=== PATIENT | female | born 1985 | race American Indian/Alaskan Native ===

== ENCOUNTER 2019-12-16 20:32 | Emergency (ER) | payer OTHER, MEDICAID ==
[2019-12-16 20:42] VITALS: BP 138/92
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
== END 2019-12-16 22:34 | disposition left against medical advice (07) ==
LOC: ED 20:32
DX: M54.89 Other dorsalgia (principal); M54.2 Cervicalgia; R07.89 Other chest pain; Z00.00 Encounter for general adult medical examination without abnormal findings
CPT/HCPCS: 99282

== ENCOUNTER 2021-04-22 17:05 | Emergency (ER) | payer MEDICAID, OTHER ==
[2021-04-22 17:53] VITALS: BP 145/99
--- NOTE | 2021-04-22 18:21 | Emergency Department Report ---
Upper Extremity - HPI Chief Complaint: Extremity Problem,Nontraumatic Stated Complaint: PAIN IN BOTH ARMS Time Seen by Provider: 04/22/21 18:16 Occurred When: >5 Days (2-3 mths) Severity: severe Symptoms: Yes Pain with Movement, Yes Limited Range of Movement, No Deformity, No Numbness, No Weakness, No Swelling, No Bruising/Ecchymosis, No Laceration or Abrasion Other History: 35-year-old female presents to the ER today with complaints of right shoulder pain. Patient states that she has been having pain in her right shoulder for about 2 to 3 months. Patient states that pain has been gradually getting worse and she is now having difficulty lifting her shoulder. States that the pain sometimes radiates into her upper arm and forearm. She reports intermittent numbness sometimes. But denies any weakness or tingling. She denies any injury or strenuous activity. She states that she has not seen anybody for this shoulder pain since it started. She states that she has been taking [id number]-[id number] medication without much relief. ED Review of Systems ROS: Stated complaint: PAIN IN BOTH ARMS Other details as noted in HPI Comment: All other systems reviewed and negative Constitutional: denies: chills, fever Eyes: denies: eye pain, eye discharge, vision change ENT: denies: ear pain, throat pain, dental pain, hearing loss, epistaxis Respiratory: denies: cough, shortness of breath, SOB with exertion, SOB at rest, wheezing Cardiovascular: denies: chest pain, palpitations, dyspnea on exertion, edema, syncope, paroxysmal nocturnal dyspnea Gastrointestinal: denies: abdominal pain, nausea, diarrhea, constipation, hematemesis, hematochezia Genitourinary: denies: urgency, dysuria, frequency, hematuria, discharge, abnor mal menses, dyspareunia Musculoskeletal: joint swelling. denies: arthralgia Neurological: numbness. denies: headache, weakness, paresthesias, confusion, abnormal gait, vertigo Psychiatric: denies: anxiety, depression Hematological/Lymphatic: denies: easy bleeding, easy bruising ED Past Medical Hx - Past Medical History Previous Medical History?: No - Social History Smoking Status: Never Smoker Substance Use Type: None - Medications Home Medications: Home Medications Medication Instructions Recorded Confirmed Last Taken Type Acetaminophen [Acetaminophen 8 650 mg PO Q6HR PRN #30 tablet.er 04/22/21 Unknown Rx Hour] Ibuprofen [Motrin] 800 mg PO Q8HR PRN #30 tablet 04/22/21 Unknown Rx methOCARBAMOL [Robaxin TAB] 500 mg PO Q8H PRN #30 tablet 04/22/21 Unknown Rx Upper Extremity Exam - Exam General: Vital signs noted. No distress. Alert and acting appropriately. Head and Torso: No HEENT Abnormality, No Neck Tenderness, No Chest/Lungs Abnormality, No Abdominal Tenderness, No Back Tenderness Shoulder Exam: Yes Shoulder Tenderness (severe ttp diffusely to right shoulder ), Yes Shoulder Deformity, No Normal Range of Motion in Shoulder (ROM of shoulder limited to about 90 degrees (passive); Pt reports inability to lift up right shoulder actively due to pain), No AC Joint Tenderness (Right ) Arm Exam: No Arm/Humerus Tenderness, No Arm Deformity Elbow: Yes Normal Range of Motion in Elbow, No Elbow Tenderness, No Elbow Deformity Forearm: No Forearm Tenderness, No Forearm Deformity, No Pain with Pronation, No Pain with Supination Wrist: Yes Normal ROM in Wrist, No Wrist Tenderness, No Wrist Deformity, No Snuffbox Tenderness, No Pain with Axial Thumb Compression Hand: Yes Normal ROM in Digit(s), No Hand Tenderness, No Hand Deformity, No Digit Tenderness, No Digit(s) Deformity, No Tendon Dysfunction CMS Exam: Yes Normal Distal Pulses, Yes Normal Capillary Refill, Yes Normal Distal Sensation, No Broken Skin ED Course Vital Signs 04/22/21 17:49 Temperature 98.5 F Pulse Rate 80 Respiratory 20 Rate Blood Pressure 145/99 [Right] O2 Sat by Pulse 99 Oximetry ED Medical Decision Making - Radiology Data Radiology results: report reviewed Patient: MATT BERGER MR#: [id number] : 1985 Acct:[id number] Age/Sex: 35 / F ADM Date: 04/22/21 Loc: ED Attending Dr: Ordering Physician: ALHAJI KWAN Date of Service: 04/22/21 Procedure(s): XR shoulder 2+V RT Accession Number(s): [id number] cc: ALHAJI KWAN Fluoro Time In Minutes: RIGHT SHOULDER 3 VIEWS INDICATION / CLINICAL INFORMATION: severe rt shoulder pain. COMPARISON: None available. FINDINGS: No appreciable degenerative change. No fracture or other acute abnormality. Signer Name: Mahesh Salazar MD Signed: 04/22/2021 7:00 PM Workstation Name: [id number] Transcribed By: TM Dictated By: Mahesh Salazar MD Electronically Authenticated By: Mahehs Salazar MD Signed Date/Time: 04/22/211899 DD/ 58 TD/TT: Critical care attestation.: If time is entered above; I have spent that time in minutes in the direct care of this critically ill patient, excluding procedure time. ED Disposition Clinical Impression: Chronic shoulder pain Disposition: DC-01 TO HOME OR SELFCARE Is pt being admited?: No Does the pt Need Aspirin: No Condition: Stable Instructions: Shoulder Pain, [id number] Additional Instructions: Take the Motrin, Tylenol and the muscle relaxer as prescribed. It is important that you follow-up with triage specialist listed on your discharge instructions for further evaluation of your shoulder pain. Return to the ER if your symptoms changes or worsens in any way. Prescriptions: Acetaminophen [Acetaminophen 8 Hour] 650 mg PO Q6HR PRN #30 tablet.er PRN Reason: Pain Ibuprofen [Motrin] 800 mg PO Q8HR PRN #30 tablet PRN Reason: Pain methOCARBAMOL [Robaxin TAB] 500 mg PO Q8H PRN #30 tablet PRN Reason: Spasms Referrals: HIEU RUBY MD [Staff Physician] - 3-5 Days Time of Disposition: 19:12
--- NOTE | 2021-04-22 19:04 | XRay Report ---
RIGHT SHOULDER 3 VIEWS INDICATION / CLINICAL INFORMATION: severe rt shoulder pain. COMPARISON: None available. FINDINGS: No appreciable degenerative change. No fracture or other acute abnormality. Signer Name: Mahesh Salazar MD Signed: 04/22/2021 7:00 PM Workstation Name: [id number]
== END 2021-04-22 19:30 | disposition home or self-care (01) ==
LOC: ED 17:05
DX: M25.511 Pain in right shoulder (principal); G89.29 Other chronic pain; Z79.1 Long term (current) use of non-steroidal anti-inflammatories (NSAID); Z79.899 Other long term (current) drug therapy